=== PATIENT | male | born 1960 | race Two or more races ===

== ENCOUNTER 2023-09-09 19:37 | Emergency (ER) | payer BC, OTHER ==
[~2023-09-09] VITALS: Ht 172.7 cm; Wt 81.6 kg
[2023-09-09 19:45] VITALS: BP 145/80; RESP 16; O2SAT 95
[2023-09-09 19:53] VITALS: PULSE 70
[2023-09-09 20:27] LABS: Urine Bacteria None Seen /hpf (None Seen)
[2023-09-09 20:46] LABS: Urine Blood Negative /uL (Negative); Urine Clarity Clear (Clear); Urine Color Light-Yellow (Yellow); Urine Mucus FEW (None Seen); Urine Protein, UAD Negative (Negative); Urine Specific Gravity 1.026 (1.001-1.035); Urine Urobilinogen Normal (Negative); Urine WBC 1 /hpf (0 - 3)
== END 2023-09-09 22:18 | disposition left against medical advice (07) ==
LOC: ER 19:37
DX: R42 Dizziness and giddiness (principal); Z53.21 Procedure and treatment not carried out due to patient leaving prior to being seen by health care provider
CPT/HCPCS: 81001; 93005